=== PATIENT | female | born 1965 | race African-American/Black ===

== ENCOUNTER 2017-03-18 18:27 | Emergency (ER) | payer SELFPAY ==
[2017-03-18 18:35] VITALS: BP 123/75
[2017-03-18] MEDS ORDERED: NAPROXEN 250 MG TABLET PO ONE (18:53)
--- NOTE | 2017-03-18 18:56 | ER Document Report ---
ED Headache - General Chief Complaint: Headache Stated Complaint: HEAD/NECK PAIN Time Seen by Provider: 03/18/17 18:42 Notes: The patient is a 51-year-old female, past medical history hypertension, headaches, presents with 2 days of posterior and frontal region headaches. She took a Motrin earlier today with relief of her symptoms. In addition, she was feeling short of breath 2 days ago, but this has resolved. She is also having several weeks of right wrist pain and has not worn her Shimon wrap for her tendinitis. Patient denies blurry vision, numbness, tingling, chest pain, current shortness of breath, leg swelling, nausea, vomiting, injury or fevers. TRAVEL OUTSIDE OF THE [place] IN LAST 30 DAYS: No - Related Data Allergies/Adverse Reactions: No Known Drug Allergies Allergy (Verified 08/29/13 02:04) cats Adverse Reaction (Mild, Uncoded 08/29/13 02:03) Past Medical History - General Information source: Patient - Social History Smoking Status: Former Smoker Frequency of alcohol use: Rare Drug Abuse: None Family History: CVA, Hyperlipidemia, Hypertension, Malignancy Patient has suicidal ideation: No Patient has homicidal ideation: No - Past Medical History Cardiac Medical History: Reports: Hx Hypercholesterolemia, Hx Hypertension Renal/ Medical History: Denies: Hx Peritoneal Dialysis Musculoskeltal Medical History: Reports Hx Arthritis, Reports Hx Musculoskeletal Deformity Past Surgical History: Reports: Hx Orthopedic Surgery - right finger, Hx Tubal Ligation - Immunizations Hx Diphtheria, Pertussis, Tetanus Vaccination: - unknown Review of Systems - Review of Systems Notes: REVIEW OF SYSTEMS: CONSTITUTIONAL: -fevers, -chills EENT: -eye pain, -difficulty swallowing, -nasal congestion CARDIOVASCULAR:-chest pain, -syncope. RESPIRATORY: -cough, -SOB GASTROINTESTINAL: -abdominal pain, - nausea, -vomiting, -diarrhea GENITOURINARY: -dysuria, -hematuria MUSCULOSKELETAL: -back pain, +neck pain, +right wrist pain SKIN: -rash or skin lesions. HEMATOLOGIC: -easy bruising or bleeding. LYMPHATIC: -swollen, enlarged glands. NEUROLOGICAL: -altered mental status or loss of consciousness, +headache, - neurologic symptoms PSYCHIATRIC: -anxiety, -depression. ALL OTHER SYSTEMS REVIEWED AND NEGATIVE. Physical Exam - Vital signs Vitals: Temp Pulse Resp BP Pulse Ox 98.1 F 74 19 123/75 98 03/18/17 18:34 03/18/17 18:34 03/18/17 18:34 03/18/17 18:34 03/18/17 18:34 - Notes Notes: PHYSICAL EXAMINATION: GENERAL: Well-appearing, well-nourished and in no acute distress. HEAD: Atraumatic, normocephalic. EYES: Pupils equal round and reactive to light, extraocular movements intact, sclera anicteric, conjunctiva are normal. ENT: nares patent, oropharynx clear without exudates. Moist mucous membranes. NECK: Normal range of motion, supple without lymphadenopathy, tenderness over B/ L upper paraspinal muscles, no midline tenderness LUNGS: Breath sounds clear to auscultation bilaterally and equal. No wheezes rales or rhonchi. HEART: Regular rate and rhythm without murmurs ABDOMEN: Soft, nontender, normoactive bowel sounds. No guarding, no rebound. No masses appreciated. EXTREMITIES: Normal range of motion, no pitting or edema. No cyanosis. Tenderness over right flexor tendons of the wrist NEUROLOGICAL: Cranial nerves grossly intact. Normal speech, normal gait. Normal sensory and motor exams. PSYCH: Normal mood, normal affect. SKIN: Warm, Dry, normal turgor, no rashes or lesions noted. Course - Re-evaluation Re-evalutation: Patient's headache is similar in nature to prior headaches. With some mild cervical paraspinal tenderness and posterior headache, patient most likely has a tension headache. Symptoms are atypical for SAH, ICH or meningitis at this time. Patient is in no respiratory distress and her lungs are clear. Vital signs are all normal. Provided her with an Shimon wrap for her right wrist tendinitis instructions to continue anti-inflammatories to help with her cephalgia and wrist tendinitis. In return precautions and she understands - Vital Signs Vital signs: Temp Pulse Resp BP Pulse Ox 98.1 F 74 18 123/75 98 03/18/17 18:34 03/18/17 18:34 03/18/17 18:39 03/18/17 18:34 03/18/17 18:34 Discharge - Discharge Clinical Impression: Tension headache, Tendonitis of wrist, right Condition: Stable Disposition: HOME, SELF-CARE Additional Instructions: HEADACHE: The physician does not feel that the headache you are experiencing has a serious underlying cause. Most headaches are due to emotional stress, with resultant muscle tension (tension headache). Occasionally, headaches are secondary to changes in the blood vessels of the scalp (vascular headache and migraine headache). Sometimes, a headache is the first symptom of another developing illness, such as a viral infection. You have no evidence of stroke, bleeding, meningitis, or other serious cause of your headache. The treatment of headaches varies with the severity and cause of the pain. Not all headaches need pain shots. In fact, there is evidence that using narcotics for headaches may make them worse in the long run. The physician will determine the therapy that's in your best interest. If you develop a fever, if the headache is different from any you've previously experienced, or if the headache progressively worsens, then call your physician at once or go to the emergency room. FOLLOW-UP CARE: If you have been referred to a physician for follow-up care, call the physician s office for an appointment as you were instructed or within the next two days. If you experience worsening or a significant change in your symptoms, notify the physician immediately or return to the Emergency Department at any time for re-evaluation. SPRAIN: Your injury is a sprain. A sprain results from stretching or tearing of the ligaments, usually from a twisting injury. The ligaments will require time and protection in order to heal properly. Many sprains are quite disabling and should be taken seriously. The usual initial treatment of sprains is cold packs, elevation, and rest of the injured area. Your physician has assessed the seriousness of your ligament injury, and has outlined a treatment plan. Understand that this treatment may change, depending on how you progress. If a re-examination was recommended, it is important that you follow up as instructed. Call the doctor any time if there is severe pain, numbness, or loss of function in the injured area. SHIMON WRAP: A compression dressing (shimon wrap) has been placed. This helps hold the area still. It limits swelling and internal bleeding. The wrap should be comfortably snug -- not tight. You should feel a sense of pressure, but not severe pain under the wrap. Unless the physician tells you otherwise, you can adjust the wrap for comfort. If the wrap causes symptoms suggesting it's too tight -- uncomfortable pressure, swelling or discoloration beyond the wrap, numbness, or severe pain - - you must loosen the wrap. If these symptoms don't resolve promptly, return for re-evaluation. ICE & ELEVATION: Apply ice packs frequently against the painful area. Many different schedules are recommended, such as "20 minutes on, 20 minutes off" or "one hour ice, two hours rest." If you need to work, you may need to go longer between ice treatments. You should plan to have the area ice packed AT LEAST one- fourth of the time. The ice should be applied over the wrap, tape, or splint, or over a layer of cloth -- not directly against the skin. Some ice bags have a built-in cloth and can be put directly on the skin. Your injured part should be elevated as much as possible over the next 48 hours. Try to keep the injury above the level of the heart. Avoid use of the injured area. Elevation and rest will decrease the swelling. USE OF [id number] IBUPROFEN: Ibuprofen (Advil, Nuprin, Medipren, Motrin IB) is a medication for fever and pain control. In addition, it has anti- inflammatory effects which may be beneficial, especially in the treatment of injuries. It's best to take ibuprofen with food. Persons with ulcer disease or allergy to aspirin should notify their physician of this before taking ibuprofen. Ibuprofen can be given every four to six hours, for a total of four doses daily. Age Pain or fever dose Antiinflammatory dose 6-8 yr 200 mg (1 tab) 200 mg (1 tab) 9-11 yr 200 mg (1 tab) 200-400 mg (1-2 tab) 11-14 yr 200-400 mg (1-2 tab) 400 mg (2 tab) 15-adult 400 mg (2 tab) 600 mg (3 tab) FOLLOW-UP CARE: If you have been referred to a physician for follow-up care, call the physician s office for an appointment as you were instructed or within the next two days. If you experience worsening or a significant change in your symptoms, notify the physician immediately or return to the Emergency Department at any time for re-evaluation. Prescriptions: Naproxen 500 mg PO Q12H #30 tablet Forms: Return to Work Referrals: CAPRI ALVARES, [ACTIVE STAFF] - Follow up as needed
== END 2017-03-18 19:05 | disposition home or self-care (01) ==
LOC: ER 18:27
DX: G44.209 Tension-type headache, unspecified, not intractable (principal); M77.9 Enthesopathy, unspecified; M25.531 Pain in right wrist; R51 Headache; M54.2 Cervicalgia; Z79.899 Other long term (current) drug therapy
CPT/HCPCS: 99284

== ENCOUNTER 2018-01-21 10:22 | Emergency (ER) | payer SELFPAY ==
[2018-01-21] MEDS ORDERED: ACETAMINOPHEN 325 MG TABLET PO ONE (10:43)
--- NOTE | 2018-01-21 10:46 | ER Document Report ---
ED Medical Screen (RME) - General Chief Complaint: High Blood Pressure Stated Complaint: BLOOD PRESSURE PROBLEMS Time Seen by Provider: 01/21/18 10:38 Notes: RAPID MEDICAL EVALUATION DISCLOSURE I have seen this patient as part of a Rapid Medical Evaluation and, if applicable, placed any initially appropriate orders. The patient will be seen and fully evaluated, including a full history and physical exam, by a provider ( in Main ED or Fast Track) when a room becomes available. 52-year-old female here with multiple complaints: HEADACHE/LIGHTHEADEDNESS Started earlier today after someone at work started cooking carrasco. She started having a mild headache, neck pain, but no fever. She also started having a lot of lightheadedness and felt like she was going to pass out, particularly with standing up. She still has the symptoms right now and the lightheadedness is most prominent. She has been eating drinking urinating defecating per usual. Exam: No cervical paraspinal muscle tenderness to palpation Regular rate and rhythm RASH Complains of a rash over the past few days after switching detergents. States that she has it on her ears and between her thighs. Exam: Minimal amount of crusting bilaterally near tragus/anti-tragus TRAVEL OUTSIDE OF THE [place] IN LAST 30 DAYS: No - Related Data Allergies/Adverse Reactions: No Known Drug Allergies Allergy (Verified 01/21/18 10:39) cats Adverse Reaction (Mild, Uncoded 01/21/18 10:39) Past Medical History - Social History Chew tobacco use (# tins/day): No Frequency of alcohol use: Occasional Drug Abuse: None Family history: CAD, Hypertension - Past Medical History Cardiac Medical History: Reports: Hx Hypercholesterolemia, Hx Hypertension Renal/ Medical History: Denies: Hx Peritoneal Dialysis Musculoskeltal Medical History: Reports Hx Arthritis, Reports Hx Musculoskeletal Deformity Past Surgical History: Reports: Hx Orthopedic Surgery - right finger, Hx Tubal Ligation - Immunizations Hx Diphtheria, Pertussis, Tetanus Vaccination: - unknown Physical Exam - Vital signs Vitals: Temp Pulse Resp BP Pulse Ox 98.6 F 81 16 143/85 H 98 01/21/18 10:35 01/21/18 10:35 01/21/18 10:35 01/21/18 10:35 01/21/18 10:35 Course - Vital Signs Vital signs: Temp Pulse Resp BP Pulse Ox 98.6 F 81 16 143/85 H 98 01/21/18 10:35 01/21/18 10:35 01/21/18 10:35 01/21/18 10:35 01/21/18 10:35
[2018-01-21 11:21] LABS: ABSOLUTE EOSINOPHILS # (AUTO) 0.1 10^3/uL (0.0-0.6); ABSOLUTE LYMPHOCYTES (AUTO) 1.4 10^3/uL (0.5-4.7); ABSOLUTE MONOCYTES (AUTO) 0.2 10^3/uL (0.1-1.4); ABSOLUTE NEUT (AUTO) 1.3 10^3/uL (1.7-8.2); BASOPHILS % (AUTO) 0.6 % (0-2); EOSINOPHILS % (AUTO) 4.5 % (0-6); HEMATOCRIT 38.4 % (36.0-47.0); HEMOGLOBIN 12.7 g/dL (12.0-15.5); MEAN CORPUSCULAR HEMOGLOBIN 27.7 pg (27.0-33.4); MEAN CORPUSCULAR HGB CONC 33.1 g/dL (32.0-36.0); MEAN CORPUSCULAR VOLUME 84 fl (80-97); MONOCYTES % (AUTO) 7.7 % (3-13); PLATELET COUNT 233 10^3/uL (150-450); RED BLOOD COUNT 4.59 10^6/uL (3.72-5.28); RED CELL DISTRIBUTION WIDTH 13.6 % (11.5-14.0); SEGMENTED NEUTROPHILS % (AUTO) 41.2 % (42-78); TOTAL CELLS COUNTED % (AUTO) 100 %; WHITE BLOOD COUNT 3.2 10^3/uL (4.0-10.5)
[2018-01-21 11:40] LABS: ANION GAP 14 (5-19); BLOOD UREA NITROGEN 17 mg/dL (7-20); CALCIUM 9.9 mg/dL (8.4-10.2); CARBON DIOXIDE 29 mmol/L (22-30); CHLORIDE 104 mmol/L (98-107); GLUCOSE 84 mg/dL (75-110); PHOSPHORUS 4.1 mg/dL (2.5-4.5); POTASSIUM 3.9 mmol/L (3.6-5.0); SODIUM 146.8 mmol/L (137-145)
[2018-01-21] MEDS ORDERED: FLUCONAZOLE 100 MG TABLET PO ONE (12:27)
--- NOTE | 2018-01-21 12:27 | ER Document Report ---
ED Blood Pressure Problem - General Chief Complaint: High Blood Pressure Stated Complaint: BLOOD PRESSURE PROBLEMS Time Seen by Provider: 01/21/18 10:38 Mode of Arrival: Ambulatory Information source: Patient Notes: Patient is a 52-year-old female who presents to the ER today for elevated blood pressure, rash to her ears and to her vaginal area times about a week. Patient states that she has switched detergents but that the vaginal area is worse, itchy and very dry. She has been putting Vaseline on the area that has not been helping. She states that Vaseline on her ears has helped. She has a blood pressure 143/85 on arrival at the emergency department. She denies headache, blurred vision, syncope. TRAVEL OUTSIDE OF THE [place] IN LAST 30 DAYS: No - Related Data Allergies/Adverse Reactions: No Known Drug Allergies Allergy (Verified 01/21/18 10:39) cats Adverse Reaction (Mild, Uncoded 01/21/18 10:39) Past Medical History - General Information source: Patient - Social History Smoking Status: Never Smoker Chew tobacco use (# tins/day): No Frequency of alcohol use: Occasional Drug Abuse: None Family History: CVA, Hyperlipidemia, Hypertension, Malignancy Patient has suicidal ideation: No Patient has homicidal ideation: No - Past Medical History Cardiac Medical History: Reports: Hx Hypercholesterolemia, Hx Hypertension Renal/ Medical History: Denies: Hx Peritoneal Dialysis Musculoskeltal Medical History: Reports Hx Arthritis, Reports Hx Musculoskeletal Deformity Past Surgical History: Reports: Hx Orthopedic Surgery - right finger, Hx Tubal Ligation - Immunizations Hx Diphtheria, Pertussis, Tetanus Vaccination: - unknown Review of Systems - Review of Systems Constitutional: No symptoms reported EENT: No symptoms reported Cardiovascular: See HPI Respiratory: No symptoms reported Gastrointestinal: No symptoms reported Genitourinary: No symptoms reported Female Genitourinary: No symptoms reported Musculoskeletal: No symptoms reported Skin: See HPI Hematologic/Lymphatic: No symptoms reported Neurological/Psychological: No symptoms reported Physical Exam - Vital signs Vitals: Temp Pulse Resp BP Pulse Ox 98.6 F 81 16 143/85 H 98 01/21/18 10:35 01/21/18 10:35 01/21/18 10:35 01/21/18 10:35 01/21/18 10:35 - Notes Notes: PHYSICAL EXAMINATION: GENERAL: Well-appearing and in no acute distress. HEAD: Atraumatic, normocephalic. EYES: Pupils equal round and reactive to light, extraocular movements intact, sclera anicteric, conjunctiva are normal. ENT: ear canals without erythema or foreign body, TMs pearly schumacher with good bony landmarks, nares patent, oropharynx clear without exudates. Moist mucous membranes. NECK: Normal range of motion, supple without lymphadenopathy LUNGS: CTAB and equal. No wheezes rales or rhonchi. HEART: Regular rate and rhythm without murmurs ABDOMEN: Soft, no tenderness. No guarding, no rebound BACK: no vertebral tenderness, normal ROM GI/: no CVA tenderness EXTREMITIES: Normal range of motion, no pitting edema. No cyanosis. NEUROLOGICAL: Cranial nerves grossly intact. Normal sensory/motor exams. Good and equal strength bilaterally, Kernig and Brudzinski's signs negative, Romberg' s test normal, normal heel to romero testing PSYCH: Normal mood, normal affect. SKIN: Warm, Dry, normal turgor, dry skin, flaky white discharge to labia majora and labia minora Course - Re-evaluation Re-evalutation: 01/21/18 12:25 Lab work is unremarkable today, orthostatic vital signs are all within the same range, patient looks very well, smiling and talkative, does not appear dizzy at all. Patient has rash to the vagina consistent with yeast appearance. I will prescribe her Monistat cream and 1 dose of Diflucan here. I advised that she drink water she states she has had no water today. 01/21/18 18:41 Her EKG reveals a normal sinus rhythm with no evidence of ischemia. - Vital Signs Vital signs: Temp Pulse Resp BP Pulse Ox 97.7 F 67 18 137/70 H 99 01/21/18 12:38 01/21/18 12:38 01/21/18 12:38 01/21/18 12:38 01/21/18 12:38 - Laboratory Result Diagrams: 01/21/18 11:02 01/21/18 11:02 Laboratory results interpreted by me: 01/21/18 01/21/18 11:02 11:02 WBC 3.2 L Seg Neutrophils % 41.2 L Lymphocytes % 46.0 H Absolute Neutrophils 1.3 L Sodium 146.8 H Discharge - Discharge Clinical Impression: Rash of genital area Condition: Stable Disposition: HOME, SELF-CARE Additional Instructions: Return immediately for any new or worsening symptoms. Follow up with primary care provider, call tomorrow to make followup appointment. Prescriptions: Miconazole Nitrate [Monistat 7] 45 gm VG BID #1 cream.[email or web address] Forms: Return to Work
[2018-01-21 12:44] VITALS: BP 137/70
--- NOTE | 2018-01-21 23:39 | EKG REPORT ---
SEVERITY:- NORMAL ECG - SINUS RHYTHM : Confirmed by: Alen Pierson 21-Jan-2018 23:38:01
== END 2018-01-21 12:43 | disposition home or self-care (01) ==
LOC: ER 10:22
DX: R21 Rash and other nonspecific skin eruption (principal); I10 Essential (primary) hypertension; E78.00 Pure hypercholesterolemia, unspecified; Z98.51 Tubal ligation status
CPT/HCPCS: 36415; 80048; 83735; 84100; 85025; 93005; 93010; 99284

== ENCOUNTER 2018-03-15 04:30 | Emergency (ER) | payer OTHER ==
--- NOTE | 2018-03-15 05:05 | ER Document Report ---
HPI - HPI Patient complains to provider of: left toe pain, left knee pain Pain Level: 3 Context: Patient is a 52-year-old female who comes emergency department for chief complaint of fall injury, she states she slipped, landed on her knee, and while she was falling she struck her left middle toe on the wall causing pain and swelling. She states she is limping but she can walk. She denies any other injury including abdomen, chest, back, head. She is not on a blood thinner. - REPRODUCTIVE Reproductive: DENIES: : Past Medical History - General Information source: Patient - Social History Smoking Status: Never Smoker Frequency of alcohol use: None Drug Abuse: None Lives with: Family Family History: CVA, Hyperlipidemia, Hypertension, Malignancy - Past Medical History Cardiac Medical History: Reports: Hx Hypercholesterolemia, Hx Hypertension Renal/ Medical History: Denies: Hx Peritoneal Dialysis Musculoskeltal Medical History: Reports Hx Arthritis, Reports Hx Musculoskeletal Deformity Past Surgical History: Reports: Hx Orthopedic Surgery - right finger, Hx Tubal Ligation - Immunizations Hx Diphtheria, Pertussis, Tetanus Vaccination: - unknown Vertical Provider Document - CONSTITUTIONAL General Appearance: WD/WN, No Apparent Distress - INFECTION CONTROL TRAVEL OUTSIDE OF THE [place] IN LAST 30 DAYS: No - HEENT HEENT: Atraumatic, Normocephalic - NECK Neck: Normal Inspection - RESPIRATORY Respiratory: Breath Sounds Normal, No Respiratory Distress - CARDIOVASCULAR Cardiovascular: Regular Rate, Regular Rhythm - GI/ABDOMEN Gastrointestinal: Abdomen Soft, Abdomen Non-Tender - BACK Back: Normal Inspection - MUSCULOSKELETAL/EXTREMETIES Musculoskeletal/Extremeties: Tender - Minimal swelling of the left middle toe with pain on palpation, otherwise unremarkable foot and toes exam. Normal capillary refill and sensation, normal dorsalis pedis. Tenderness over the left knee over the proximal anterior tibia and the patella, no bruising or swelling, full range of motion of the knee. Normal hip exam. Normal ankle exam. Normal lower extremity exam otherwise. - NEURO Level of Consciousness: Awake, Alert, Appropriate - DERM Integumentary: Warm, Dry, No Rash Course - Re-evaluation Re-evalutation: X-rays with no acute findings. Incidental fibroma, discussed with patient. Discussed recommendations from sprains and soft tissue injury, provided with crutches and postop shoe on patient's request, provided with work release, recommendations, follow-up, return precautions. Patient states understanding and agreement with plan. - Vital Signs Vital signs: Temp Pulse Resp BP Pulse Ox 98.5 F 88 18 151/92 H 94 03/15/18 04:33 03/15/18 04:33 03/15/18 04:33 03/15/18 04:33 03/15/18 04:33 - Diagnostic Test Radiology reviewed: Image reviewed, Reports reviewed Discharge - Discharge Clinical Impression: Injury of left toe Qualifiers: Encounter type: initial encounter Qualified Code(s): S99.922A - Unspecified injury of left foot, initial encounter Left knee injury Qualifiers: Encounter type: initial encounter Qualified Code(s): S89.92XA - Unspecified injury of left lower leg, initial encounter Fall Qualifiers: Encounter type: initial encounter Qualified Code(s): W19.XXXA - Unspecified fall, initial encounter Condition: Stable Disposition: HOME, SELF-CARE Additional Instructions: Your x-rays do not show a fracture. Your examination and symptoms are consistent with a sprain of both the toe and of the knee. I recommend elevating your knee and your foot, use the crutches, apply ice to the area 3-5 times a day for 10-15 minutes, take the prescribed anti-inflammatory (with food) . After 2 days resume activity as tolerated. Follow-up with your primary care provider. Return for any concerning or worsening symptoms including severe swelling or pain. Prescriptions: Naproxen [Naprosyn 375 Mg Tablet] 375 mg PO BID #14 tablet Forms: Return to Work
--- NOTE | 2018-03-15 05:27 | RADIOLOGY REPORT (SQ) ---
EXAM DESCRIPTION: XR TOES 2 OR MORE VIEWS COMPLETED DATE/TME: 03/15/2018 04:48 CLINICAL HISTORY: 52 years Female, pain, swelling COMPARISON: None. Limitation: No lateral view. Findings: Bones, joints, and soft tissues of the XR left third TOES 2 VIEWS appear intact. IMPRESSION: No acute findings. Limitation.
--- NOTE | 2018-03-15 05:28 | RADIOLOGY REPORT (SQ) ---
EXAM DESCRIPTION: XR KNEE 4 OR MORE VIEWS COMPLETED DATE/TME: 03/15/2018 04:48 CLINICAL HISTORY: 52 years Female, landed on knee, pain COMPARISON: None. 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 Bones, joints, and soft tissues of the XR KNEE 4 OR MORE VIEWS appear otherwise intact. IMPRESSION: No acute findings.
[2018-03-15 06:21] VITALS: BP 156/85
== END 2018-03-15 06:20 | disposition home or self-care (01) ==
LOC: ER 04:30
DX: S99.922A Unspecified injury of left foot, initial encounter (principal); S89.92XA Unspecified injury of left lower leg, initial encounter; W01.198A Fall on same level from slipping, tripping and stumbling with subsequent striking against other object, initial encounter; Y93.89 Activity, other specified; D16.22 Benign neoplasm of long bones of left lower limb; I10 Essential (primary) hypertension
CPT/HCPCS: 99283

== ENCOUNTER 2018-06-10 14:13 | Emergency (ER) | payer OTHER ==
[2018-06-10] MEDS ORDERED: IPRATROPIUM/ALBUTEROL 0.5-2.5 MG/3 ML AMPUL NEB ONE (15:31)
[2018-06-10] MEDS ORDERED: LIDOCAINE 1% INJ-PF (10 MG/ML) 30 ML SDV NEB ONE (15:31)
[2018-06-10 15:57] LABS: ABSOLUTE EOSINOPHILS # (AUTO) 0.1 10^3/uL (0.0-0.6); ABSOLUTE LYMPHOCYTES (AUTO) 1.7 10^3/uL (0.5-4.7); ABSOLUTE MONOCYTES (AUTO) 0.5 10^3/uL (0.1-1.4); ABSOLUTE NEUT (AUTO) 3.3 10^3/uL (1.7-8.2); BASOPHILS % (AUTO) 0.4 % (0-2); EOSINOPHILS % (AUTO) 1.4 % (0-6); HEMATOCRIT 39.1 % (36.0-47.0); LYMPHOCYTES % (AUTO) 29.6 % (13-45); MEAN CORPUSCULAR HEMOGLOBIN 27.8 pg (27.0-33.4); MEAN CORPUSCULAR HGB CONC 33.1 g/dL (32.0-36.0); MEAN CORPUSCULAR VOLUME 84 fl (80-97); MONOCYTES % (AUTO) 9.3 % (3-13); PLATELET COUNT 239 10^3/uL (150-450); RED BLOOD COUNT 4.67 10^6/uL (3.72-5.28); RED CELL DISTRIBUTION WIDTH 14.1 % (11.5-14.0); SEGMENTED NEUTROPHILS % (AUTO) 59.3 % (42-78); TOTAL CELLS COUNTED % (AUTO) 100 %; WHITE BLOOD COUNT 5.7 10^3/uL (4.0-10.5)
--- NOTE | 2018-06-10 16:08 | RADIOLOGY REPORT (SQ) ---
EXAM DESCRIPTION: CHEST 2 VIEWS COMPLETED DATE/TIME: 06/10/2018 4:00 pm REASON FOR STUDY: cough COMPARISON: 04/07/2016 EXAM PARAMETERS: NUMBER OF VIEWS: two views TECHNIQUE: Digital Frontal and Lateral radiographic views of the chest acquired. RADIATION DOSE: NA LIMITATIONS: none FINDINGS: LUNGS AND PLEURA: No opacities, masses or pneumothorax. No pleural effusion. MEDIASTINUM AND HILAR STRUCTURES: No masses or contour abnormalities. HEART AND VASCULAR STRUCTURES: Heart normal size. No evidence for failure. BONES: No acute findings. HARDWARE: None in the chest. OTHER: No other significant finding. IMPRESSION: NO ACUTE RADIOGRAPHIC FINDING IN THE CHEST. TECHNICAL DOCUMENTATION: JOB ID: [id number] [employer]- All Rights Reserved Reading location - IP/workstation name: [email or web address]
[2018-06-10 16:16] LABS: ANION GAP 11 (5-19); BLOOD UREA NITROGEN 13 mg/dL (7-20); CALCIUM 9.8 mg/dL (8.4-10.2); CARBON DIOXIDE 30 mmol/L (22-30); CHLORIDE 102 mmol/L (98-107); GLUCOSE 104 mg/dL (75-110); POTASSIUM 3.6 mmol/L (3.6-5.0); SODIUM 143.3 mmol/L (137-145)
[2018-06-10] MEDS ORDERED: ALBUTEROL SULFATE HFA (90 MCG/PUFF) 8 GM MDI (1 MDI/ER DISP) IH ONE (17:00)
[2018-06-10] MEDS ORDERED: IBUPROFEN 600 MG TABLET PO ONE (17:00)
[2018-06-10] MEDS ORDERED: AMOXICILLIN TRIHYDRATE 500 MG CAPSULE PO ONE (17:00)
--- NOTE | 2018-06-10 17:06 | ER Document Report ---
ED General - General Chief Complaint: Chest Pain Stated Complaint: HEADACHE,SORE THROAT Time Seen by Provider: 06/10/18 15:31 TRAVEL OUTSIDE OF THE [place] IN LAST 30 DAYS: No - HPI Patient complains to provider of: Chest pain sore throat nasal congestion Notes: Patient coming in for the above-stated symptoms ongoing for the last 3 days along with sinus congestion patient does states that she is having a sore throat with sinus drainage patient states chest pain is more likely related to her cough she has been coughing for the last 3 days hurts when she coughs. Patient denies any trauma denies any fevers chills nausea vomiting diarrhea - Related Data Allergies/Adverse Reactions: No Known Drug Allergies Allergy (Verified 01/21/18 10:39) cats Adverse Reaction (Mild, Uncoded 01/21/18 10:39) Past Medical History - Social History Smoking Status: Never Smoker Family History: CVA, Hyperlipidemia, Hypertension, Malignancy Patient has suicidal ideation: No Patient has homicidal ideation: No - Past Medical History Cardiac Medical History: Reports: Hx Hypercholesterolemia, Hx Hypertension Renal/ Medical History: Denies: Hx Peritoneal Dialysis Musculoskeletal Medical History: Reports Hx Arthritis, Reports Hx Musculoskeletal Deformity Past Surgical History: Reports: Hx Orthopedic Surgery - right finger, Hx Tubal Ligation - Immunizations Hx Diphtheria, Pertussis, Tetanus Vaccination: - unknown Review of Systems - Review of Systems Constitutional: No symptoms reported EENT: Other - Sinus pressure sinus drainage runny nose cough Cardiovascular: No symptoms reported Respiratory: No symptoms reported Gastrointestinal: No symptoms reported Genitourinary: No symptoms reported Female Genitourinary: No symptoms reported Musculoskeletal: No symptoms reported Skin: No symptoms reported Hematologic/Lymphatic: No symptoms reported Neurological/Psychological: No symptoms reported -: Yes All other systems reviewed and negative Physical Exam - Vital signs Vitals: Temp Pulse Resp BP Pulse Ox 98.6 F 93 18 134/82 H 99 06/10/18 14:27 06/10/18 14:27 06/10/18 14:27 06/10/18 14:27 06/10/18 14:27 Interpretation: Normal - General General appearance: Appears well, Alert - HEENT Head: Normocephalic, Atraumatic Eyes: Normal Conjunctiva: Normal Cornea: Normal Pupils: PERRL Sinus: Tenderness - Frontal and maxillary Nasal: Normal Pharynx: Normal, Post nasal drainage Neck: Normal - Respiratory Respiratory status: No respiratory distress Chest status: Nontender Breath sounds: Normal Chest palpation: Normal - Cardiovascular Rhythm: Regular Heart sounds: Normal auscultation Murmur: No - Abdominal Inspection: Normal Distension: No distension Bowel sounds: Normal Tenderness: Nontender Organomegaly: No organomegaly - Back Back: Normal, Nontender - Extremities General upper extremity: Normal inspection, Nontender, Normal color, Normal ROM , Normal temperature General lower extremity: Normal inspection, Nontender, Normal color, Normal ROM , Normal temperature, Normal weight bearing. No: Dina's sign - Neurological Neuro grossly intact: Yes Cognition: Normal Orientation: AAOx4 Sae Coma Scale Eye Opening: Spontaneous Sae Coma Scale Verbal: Oriented Sae Coma Scale Motor: Obeys Commands [place] Coma Scale Total: 15 Speech: Normal Motor strength normal: LUE, RUE, LLE, RLE Sensory: Normal - Psychological Associated symptoms: Normal affect, Normal mood - Skin Skin Temperature: Warm Skin Moisture: Dry Skin Color: Normal Course - Re-evaluation Re-evalutation: 06/10/18 19:39 Patient symptoms seem to be stemming from a sinus infection. Recommend starting on amoxicillin albuterol inhaler was given with relief of the patient' s cough. This was given to the patient to be taken home to as well. Patient will be discharged on follow-up primary care physician - Vital Signs Vital signs: Temp Pulse Resp BP Pulse Ox 98.4 F 97 18 142/85 H 100 06/10/18 17:14 06/10/18 17:14 06/10/18 17:14 06/10/18 17:14 06/10/18 17:14 - Laboratory Result Diagrams: 06/10/18 15:35 06/10/18 15:35 Laboratory results interpreted by me: 06/10/18 15:35 RDW 14.1 H Discharge - Discharge Clinical Impression: Chest wall pain Sinusitis Qualifiers: Sinusitis location: unspecified location Chronicity: unspecified Qualified Code (s): J32.9 - Chronic sinusitis, unspecified Condition: Good Disposition: HOME, SELF-CARE Instructions: Anti-Inflammatory Medication ([facility]), Chest Wall Pain ([facility]), Sinusitis ([facility]) Additional Instructions: Evaluation today shows no signs of cardiac ischemia pneumonia with your lungs or any other significant infections. Her examination is consistent with a sinus infection more likely experiencing sinus drainage causing sore throat and also causing the cough. We recommend using natural honey for cough suppression. To treat her sinus infection we will start you on amoxicillin. Also recommend using the inhaler that we gave you here in ER 2 puffs every 4 hours as needed for any shortness of breath or cough follow-up with your primary care physician return to ER if symptoms worsen. Prescriptions: Ibuprofen [Motrin 600 mg Tablet] 600 mg PO Q8HP PRN #21 tablet PRN Reason: Amoxicillin 500 mg PO TID #30 capsule Forms: Return to Work
[2018-06-10 17:15] VITALS: BP 142/85
--- NOTE | 2018-06-10 20:03 | EKG REPORT ---
SEVERITY:- NORMAL ECG - SINUS RHYTHM : Confirmed by: Araseli Garcia MD 10-Jun-2018 20:02:57
== END 2018-06-10 17:14 | disposition home or self-care (01) ==
LOC: ER 14:13
DX: J32.9 Chronic sinusitis, unspecified (principal); R07.89 Other chest pain; R51 Headache; J02.9 Acute pharyngitis, unspecified; R09.81 Nasal congestion; I10 Essential (primary) hypertension
CPT/HCPCS: 93005; 94640; 99285; 36415; 85025; 80048; 84484; 71046; 93010; J3490 ×2; J7620

== ENCOUNTER → 2020-04-06 | Outpatient (CLI) | payer OTHER ==
--- NOTE | 2020-04-06 11:05 | ER [facility] ASSESSMENT REPORT ---
Intake - In the Last 14 days Have you traveled outside [place]?: No Have you been in close contact with someone CONFIRMED: Yes Worked in Healthcare?: No - Symptoms Subjective Fever([place] feverish): No Chills: No Muscule Aches: No Runny Nose: No Sore Throat: No Cough (New or worsening chronic cough): No Shortness of breath: No Nausea or Vomiting: No Headache: Yes Abdominal Pain: No Diarrhea(3 or more loose stools in last 24 hours): No - Do you have any of the following Chronic lung disease: Asthma or emphysema or COPD: No Cystic Fibrosis: No Diabetes: No High Blood Pressure: Yes Cardiovascular Disease: No Chronic Kidney Disease: No Chronic Liver Disease: No Chronic blood disorder like Sickle Cell Disease: No Weak immune system due to disease or medication: No Neurologic condition that limits movement: No Developmental delay - Moderate to Severe: No Recent (within past 2 weeks) or current : No Morbid Obesity (>100 pounds over ideal weight): No - Objective Temperature: 98.5 F Pulse Rate: 108 Respiratory Rate: 18 Blood Pressure: 177/80 O2 Sat by Pulse Oximetry: 98 Objective: Given above, testing performed: If Testing Performed: Test Specimen Type Sent to General - General Information source: Patient Notes: Patient presents to the [facility] for screening for the coronavirus. Patient reports recent exposure to a family friend who tested positive. Patient complains only of mild headache for the past day. Patient states she has had some normal coughing. Patient does have a history of underlying hypertension and states she has not yet had her blood pressure medicine today. - Related Data Allergies/Adverse Reactions: No Known Drug Allergies Allergy (Verified 01/21/18 10:39) cats Adverse Reaction (Mild, Uncoded 01/21/18 10:39) Past Medical History - General Information source: Patient - Social History Smoking Status: Never Smoker Family History: CVA, Hyperlipidemia, Hypertension, Malignancy - Past Medical History Cardiac Medical History: Reports: Hx Hypercholesterolemia, Hx Hypertension Renal/ Medical History: Denies: Hx Peritoneal Dialysis Musculoskeletal Medical History: Reports Hx Arthritis, Reports Hx Musculoskeletal Deformity Past Surgical History: Reports: Hx Orthopedic Surgery - right finger, Hx Tubal Ligation. Denies: Hx Pacemaker Physical Exam - Notes Notes: The patient was evaluated during the global Covid 19 pandemic, and that diagnosis was suspected/considered upon their initial presentation. Their evaluation, treatment and testing was consistent with current guidelines for patients who present with complaints or symptoms that may be related to Covid 19. Full physical exam could not be performed due to covid 19 isolation protocols. Constitutional: Nontoxic appearance, no acute distress Eyes: Nonicteric, extraocular movements intact, sclera clear Cardiovascular: Heart rate and rhythm regular, no JVD Respiratory: Breath sounds clear bilaterally, nonlabored breathing, no use of accessory muscles, no tachypnea Gastrointestinal: Abdomen not distended Muculoskeletal: Moves all extremities well Skin: Normal color Neuro: Awake alert oriented, normal speech Psych: Normal mood and affect Diagnostic Results Laboratory Results: Patient presents with upper respiratory symptoms worrisome for possible Covid 19. Patient does not have emergency worrying symptoms such as difficulty breathing, shortness of breath, chest pain, pressure, confusion or cyanosis. Patient is hypertensive with mild tachycardia. Patient states she has not yet had her medications today. Patient encouraged to present to the emergency department for any worsening of symptoms. Good return precautions have been discussed with patient, patient verbalized understanding and is agreeable with discharge plan of care at this time. Patient Education/Counseling Counseling/Education: Patient was provided with discharge information including: As a person under investigation for Covid 19, the [place] department of Health and Human Services, division of public health advises you to adhere to the following guidance until your test results are reported to you. If your test result is positive, you will receive additional information from your provider and your local health department at that time. Remain at home until you are cleared by the health provider or public health authorities. Keep a log of visitors to your home, notify any visitors to your home of your isolation status. If you plan to move to a new address or leave the county, notify the local health department in your County. Call your doctor or seek care if you have an urgent medical need. Before seeking medical care, call ahead to get instructions from the provider before arriving at the medical office clinic or hospital. Notify them that you are being tested for the virus that causes Covid 19 so that arrangements can be made, as necessary, to prevent transmission to others in the healthcare setting. Next, notify the local health department in your county. If a medical emergency arises and you need to call 911, inform the first responders that you are being tested for the virus that causes Covid 19. Next, notify the local health department in your county. [facility] Discharge - Discharge Clinical Impression: Encounter for screening laboratory testing for COVID-19 virus Condition: Stable Disposition: Home; Selfcare
[2020-04-06 11:11] VITALS: BP 177/80
== END ==
LOC: RDC 10:07
PROVIDERS: ATTEND Nurse Practitioner Family
DX: Z20.828 Contact with and (suspected) exposure to other viral communicable diseases (principal); R51 Headache; I10 Essential (primary) hypertension; J30.81 Allergic rhinitis due to animal (cat) (dog) hair and dander
CPT/HCPCS: 87635; C9803; 99201; 99211